=== PATIENT | female | born 1995 | race Caucasian/White ===

== ENCOUNTER → 2017-01-01 | Outpatient (CLI) | payer MEDICAID | LOC: MW.CHFP 14:37 | PROVIDERS: ATTEND Physician Assistant | DX: J02.9 Acute pharyngitis, unspecified (principal) | CPT/HCPCS: 87081; 87880 ==

== ENCOUNTER 2020-12-30 03:33 | Emergency (ER) | payer MEDICAID ==
[2020-12-30 04:47] LABS: ACETAMINOPHEN <2.0 ug/mL; BLOOD UREA NITROGEN,BUN 5 mg/dL (7.0-18.0); CARBON DIOXIDE,CO2 24.4 mmol/L (21.0-32.0); CHLORIDE,CL 106 mmol/L (98-107); GLUCOSE RANDOM 105 mg/dL (74-106); POTASSIUM,K 3.6 mmol/L (3.5-5.1); SODIUM,NA 144 mmol/L (136-145)
--- NOTE | 2020-12-30 05:07 | EDM.PDOC ---
ED HPI GENERAL MEDICAL PROBLEM - General Chief Complaint: Behavioral/Psych Stated Complaint: SUICIDAL THOUGHTS Time Seen by Provider: 12/30/20 03:36 - History of Present Illness INITIAL COMMENTS - FREE TEXT/NARRATIVE: CHIEF COMPLAINT(S): Suicidal attempt HISTORY OF PRESENT ILLNESS: This is a 25-year-old woman with a past medical history of depression on Lexapro who comes to the emergency department with a chief complaint of suicidal attempt. The patient states that for the last few days she has been feeling more depressed. She states that she had her Lexapro changed approximately 2 3 weeks ago and it was doubled. She states that prior to that she said that her Lexapro was not working and she started to feel more depressed, sad, crying and loss of interest in daily life. She states that last night she started to experience suicidal thoughts and decided to try and kill herself by cutting. She states that she did cut her left forearm with a knife.. She states that after she cut her left forearm that she started to drink. She states that she had approximately 4 beers and 3 shots. She denies any daily excessive alcohol use. She denies any illicit substances. She states that she has tried cutting in the past but has never had tried to kill herself. She denies any access to weapons. She denies any ingestions. She states that he recently did start using tobacco. She denies any homicidal ideation, visual hallucination or auditory hallucination. She denies any chest pain, shortness of breath, abdominal pain, nausea or vomiting. She denies any other symptoms at all whatsoever. REVIEW OF SYSTEMS: Constitutional: Denies fever, chills. Eyes: Denies eye pain Ears, Nose, Mouth, & Throat: Denies earache Cardiovascular: Denies chest pain Respiratory: Denies shortness of breath Gastrointestinal: Denies Nausea, vomiting, diarrhea, hematochezia. Genitourinary: Denies hematuria Skin:Denies a rash MSK: Denies joint pain Neurological: Denies blurred vision Psychiatric: Positive for depression, suicidal ideation, suicidal attempt PAST MEDICAL HISTORY: As per history of present illness and as reviewed below otherwise noncontributory. SURGICAL HISTORY: As per history of present illness and as reviewed below otherwise noncontributory. SOCIAL HISTORY: As per history of present illness and as reviewed below otherwise noncontributory. FAMILY HISTORY: As per history of present illness and as reviewed below otherwise noncontributory. EXAMINATION OF ORGAN SYSTEMS/BODY AREAS: Constitutional: Blood pressure was 123/80, heart rate 90, respiratory rate 18 with an oxygen saturation of 96% on room air. Temperature 36.3 General: Young woman who is tearful but in no acute distress Psychiatric: Depressed mood and affect. Intermittently tearful. Eyes: No scleral icterus or conjunctival erythema pupils were 4 mm and reactive bilaterally. Extraocular movements intact. ENMT: Moist mucous membranes. No pharyngeal erythema Cardiovascular: Regular, rate, and rhythm. No gallops, murmurs, or rubs. Bilateral upper extremity pulses symmetric and intact. No peripheral edema. No JVD. Respiratory: Lungs clear to auscultation bilaterally. No wheezes, rales, or rhonchi. Gastrointestinal: Soft, non-tender, non-distended. Normoactive bowel sounds Genitourinary: No suprapubic tenderness Musculoskeletal: Normal range of motion. Skin: There are superficial abrasions on the patient's left forearm. No lacerations. Neurological: Alert, GCS 15 strength and sensation grossly intact MEDICAL DECISION MAKING AND COURSE IN THE ED WITH INTERPRETATION/REVIEW OF DIAGNOSTIC STUDIES: This is a 25-year-old woman with a past medical history of depression who comes to the emergency department with acute suicidal ideation with a attempt by cutting by killing herself. At this time we will place the patient on suicide precautions and obtain screening labs including CBC, CMP, hCG, TSH, urine drug screen, serum drug screen and a Covid swab. EKG was obtained which did not reveal any acute signs of ischemia. I did have a discussion with the patient that I would likely need to transfer her for inpatient psychiatric evaluation given the suicidal attempt and suicidal ideation. She states that this is the reason she came to the emergency department. Laboratory: CBC is unremarkable. CMP reveals hypoalbuminemia at 3.0 otherwise unremarkable. TSH is normal. hCG is negative. Urine drug screen is negative. Serum salicylates are 1.4. Serum Tylenol is negative. Serum alcohol is 167. Covid is negative. Urinalysis was a clean catch and was negative for leukocyte esterase, negative f or nitrites, and negative for blood. Interpretation: Negative. Time: 0407 Twelve-lead EKG interpreted by myself. Normal sinus rhythm at a rate of 84beats per minute. Normal axis. KS interval is 178ms. QRS duration is 106ms. ST segments are normal without elevations or depressions. No T wave inversions no Q waves present. Hypertrophy not noted. No prior EKGs in our system. Interpretation: Normal sinus rhythm After labs and imaging I did discuss with her that I would like to transfer her for inpatient psychiatry. She was amenable to this plan. I contacted [facility] in [place] and they have no available psychiatric beds. We then contacted [facility] in [facility] and they did not have any available beds. Therefore we contacted [facility] and they did have available beds. I talked to Dr. Sosa who stated that they would hold the bed until noon pending paperwork evaluation. We did fax the patient's paperwork. This paperwork includes a 24-hour hold. This is to ensure safe transport for the patient and evaluation by psychiatry. I did discuss with the patient that I was going to fill out this paperwork she was amenable to this plan. [facility] in [place] did receive the paperwork and they accepted the patient for transfer and admission. This is discussed with the patient and family at bedside. They will await transfer. We did contact EMS and at this time there is no available ambulance transfer until 8 AM. [facility] ambulance arrival. DISPOSITION: The patient will be transferred to [facility], the patient signed out to [facility] day team physician pending transfer as the patient could not be transferred until 8 AM when EMS was available CONDITION: Serious PROCEDURES: None FINAL IMPRESSION(S)/DIAGNOSES: 1. Acute suicidal attempt by cutting 2. Acute suicidal ideation 3. Acute alcohol intoxication Jean Claude James M.D. - Related Data Allergies Allergy/AdvReac Type Severity Reaction Status Date / Time No Known Allergies Allergy Verified 12/30/20 03:55 Home Meds: Home Meds Escitalopram Oxalate [Lexapro] 10 mg PO DAILY 12/30/20 [History] Past Medical History HEENT History: Reports: None Cardiovascular History: Reports: None Respiratory History: Reports: None Gastrointestinal History: Reports: None Genitourinary History: Reports: None WATER SYSTEMS ENGINEER History: Reports: None Musculoskeletal History: Reports: None Neurological History: Reports: None Psychiatric History: Reports: Anxiety, Depression, Suicidal Ideation Endocrine/Metabolic History: Reports: None Insulin Pump Model and Preschool Program Director: None Hematologic History: Reports: None Immunologic History: Reports: None Oncologic (Cancer) History: Reports: None Dermatologic History: Reports: None - Infectious Disease History Infectious Disease History: Reports: None - Past Surgical History Head Surgeries/Procedures: Reports: None HEENT Surgical History: Reports: Oral Surgery Social & Family History - Caffeine Use Caffeine Use: Reports: Energy Drinks - Recreational Drug Use Recreational Drug Use: No ED ROS GENERAL - Review of Systems Review Of Systems: See Below ED EXAM, RENAL/ - Physical Exam Exam: See Below Course - Vital Signs Last Recorded V/S: Last Vital Signs Temp 36.3 C 12/30/20 04:58 Pulse 69 12/30/20 04:58 Resp 18 12/30/20 04:58 BP 119/73 12/30/20 04:58 Pulse Ox 98 12/30/20 04:58 - Orders/Labs/Meds Orders: Active Orders 24 hr Category Date Time Status EKG Documentation Completion [RC] STAT Care 12/30/20 03:48 Active Labs: Laboratory Tests 12/30/20 12/30/20 12/30/20 Range/Units 03:40 03:50 04:04 WBC 7.37 (4.0-11.0) K/uL RBC 4.57 (4.30-5.90) M/uL Hgb 12.8 (12.0-16.0) g/dL Hct 39.0 (36.0-46.0) % MCV 85.3 (80.0-98.0) fL MCH 28.0 (27.0-32.0) pg MCHC 32.8 (31.0-37.0) g/dL RDW Std Deviation 39.7 (28.0-62.0) fl RDW Coeff of Zina 13 (11.0-15.0) % Plt Count 306 (150-400) K/uL MPV 9.90 (7.40-12.00) fL Neut % (Auto) 61.8 (48.0-80.0) % Lymph % (Auto) 32.3 (16.0-40.0) % [place] % (Auto) 5.3 (0.0-15.0) % Eos % (Auto) 0.3 (0.0-7.0) % Baso % (Auto) 0.3 (0.0-1.5) % Neut # (Auto) 4.6 (1.4-5.7) K/uL Lymph # (Auto) 2.4 (0.6-2.4) K/uL [place] # (Auto) 0.4 (0.0-0.8) K/uL Eos # (Auto) 0.0 (0.0-0.7) K/uL Baso # (Auto) 0.0 (0.0-0.1) K/uL Nucleated RBC % 0.0 /100WBC Nucleated RBCs # 0 K/uL Sodium (136-145) mmol/L Potassium (3.5-5.1) mmol/L Chloride (98-107) mmol/L Carbon Dioxide (21.0-32.0) mmol/L BUN (7.0-18.0) mg/dL Creatinine (0.6-1.0) mg/dL Est Cr Clr Drug Dosing mL/min Estimated GFR (MDRD) ml/min Glucose (74-106) mg/dL Calcium (8.5-10.1) mg/dL Total Bilirubin (0.2-1.0) mg/dL AST (15-37) IU/L ALT (14-63) IU/L Alkaline Phosphatase (46-116) U/L Total Protein (6.4-8.2) g/dL Albumin (3.4-5.0) g/dL Globulin (2.6-4.0) g/dL Albumin/Globulin Ratio (0.9-1.6) TSH 3rd Generation (0.36-3.74) uIU/mL HCG, Qual (NEG) Urine Color YELLOW Urine Appearance CLEAR Urine pH 6.5 (5.0-8.0) Ur Specific [place] <= 1.005 (1.001-1.035) Urine Protein NEGATIVE (NEGATIVE) mg/dL Urine Glucose (UA) NEGATIVE (NEGATIVE) mg/dL Urine Ketones NEGATIVE (NEGATIVE) mg/dL Urine Occult Blood NEGATIVE (NEGATIVE) Urine Nitrite NEGATIVE (NEGATIVE) Urine Bilirubin NEGATIVE (NEGATIVE) Urine Urobilinogen 0.2 (<2.0) EU/dL Ur Leukocyte Esterase NEGATIVE (NEGATIVE) Salicylates (0-20) mg/dL Urine Opiates Screen NEGATIVE (NEGATIVE) Ur Oxycodone Screen NEGATIVE (NEGATIVE) Urine Methadone Screen NEGATIVE (NEGATIVE) Acetaminophen ug/mL Ur Barbiturates Screen NEGATIVE (NEGATIVE) Ur Phencyclidine Scrn NEGATIVE (NEGATIVE) Ur Amphetamine Screen NEGATIVE (NEGATIVE) U Methamphetamines Scrn NEGATIVE (NEGATIVE) U Benzodiazepines Scrn NEGATIVE (NEGATIVE) U Cocaine Metab Screen NEGATIVE (NEGATIVE) U Marijuana (THC) Screen NEGATIVE (NEGATIVE) Ethyl Alcohol mg/dL SARS-CoV-2 RNA (DESTINY) (NEGATIVE) 12/30/20 12/30/20 12/30/20 Range/Units 04:04 04:04 04:15 WBC (4.0-11.0) K/uL RBC (4.30-5.90) M/uL Hgb (12.0-16.0) g/dL Hct (36.0-46.0) % MCV (80.0-98.0) fL MCH (27.0-32.0) pg MCHC (31.0-37.0) g/dL RDW Std Deviation (28.0-62.0) fl RDW Coeff of Zina (11.0-15.0) % Plt Count (150-400) K/uL MPV (7.40-12.00) fL Neut % (Auto) (48.0-80.0) % Lymph % (Auto) (16.0-40.0) % [place] % (Auto) (0.0-15.0) % Eos % (Auto) (0.0-7.0) % Baso % (Auto) (0.0-1.5) % Neut # (Auto) (1.4-5.7) K/uL Lymph # (Auto) (0.6-2.4) K/uL [place] # (Auto) (0.0-0.8) K/uL Eos # (Auto) (0.0-0.7) K/uL Baso # (Auto) (0.0-0.1) K/uL Nucleated RBC % /100WBC Nucleated RBCs # K/uL Sodium 144 (136-145) mmol/L Potassium 3.6 (3.5-5.1) mmol/L Chloride 106 (98-107) mmol/L Carbon Dioxide 24.4 (21.0-32.0) mmol/L BUN 5 L (7.0-18.0) mg/dL Creatinine 0.8 (0.6-1.0) mg/dL Est Cr Clr Drug Dosing 111.37 mL/min Estimated GFR (MDRD) > 60.0 ml/min Glucose 105 (74-106) mg/dL Calcium 8.4 L (8.5-10.1) mg/dL Total Bilirubin 0.2 (0.2-1.0) mg/dL AST 11 L (15-37) IU/L ALT 15 (14-63) IU/L Alkaline Phosphatase 74 (46-116) U/L Total Protein 7.4 (6.4-8.2) g/dL Albumin 3.0 L (3.4-5.0) g/dL Globulin 4.4 H (2.6-4.0) g/dL Albumin/Globulin Ratio 0.7 L (0.9-1.6) TSH 3rd Generation 2.59 (0.36-3.74) uIU/mL HCG, Qual NEGATIVE (NEG) Urine Color Urine Appearance Urine pH (5.0-8.0) Ur Specific [place] (1.001-1.035) Urine Protein (NEGATIVE) mg/dL Urine Glucose (UA) (NEGATIVE) mg/dL Urine Ketones (NEGATIVE) mg/dL Urine Occult Blood (NEGATIVE) Urine Nitrite (NEGATIVE) Urine Bilirubin (NEGATIVE) Urine Urobilinogen (<2.0) EU/dL Ur Leukocyte Esterase (NEGATIVE) Salicylates 1.4 (0-20) mg/dL Urine Opiates Screen (NEGATIVE) Ur Oxycodone Screen (NEGATIVE) Urine Methadone Screen (NEGATIVE) Acetaminophen <2.0 ug/mL Ur Barbiturates Screen (NEGATIVE) Ur Phencyclidine Scrn (NEGATIVE) Ur Amphetamine Screen (NEGATIVE) U Methamphetamines Scrn (NEGATIVE) U Benzodiazepines Scrn (NEGATIVE) U Cocaine Metab Screen (NEGATIVE) U Marijuana (THC) Screen (NEGATIVE) Ethyl Alcohol 165 mg/dL SARS-CoV-2 RNA (DESTINY) NEGATIVE (NEGATIVE) Departure - Departure Time of Disposition: 06:09 Disposition: DC/Tfer to Psych Hosp/Unit 65 Condition: Serious Clinical Impression: Self-harm, Suicide attempt, Suicidal ideation - Discharge Information *PRESCRIPTION DRUG MONITORING PROGRAM REVIEWED*: No *COPY OF PRESCRIPTION DRUG MONITORING REPORT IN PATIENT VICENTA: No Referrals: Erin Ortega MD [Primary Care Provider] - Forms: ED Department Discharge Sepsis Event Note (ED) - Evaluation Sepsis Screening Result: No Definite Risk - Focused Exam Vital Signs: Vital Signs Temp Pulse Resp BP Pulse Ox 12/30/20 04:58 36.3 C 69 18 119/73 98 12/30/20 03:45 36.3 C 90 18 123/80 96 - My Orders Last 24 Hours: My Active Orders 12/30/20 03:48 EKG Documentation Completion [RC] STAT - Assessment/Plan Last 24 Hours: My Active Orders 12/30/20 03:48 EKG Documentation Completion [RC] STAT
[2020-12-30 08:41] VITALS: BP 111/47; PULSE 95
[2020-12-30] MEDS ORDERED: Ibuprofen 400 MG Tab PO ONE (09:17)
== END 2020-12-30 09:29 ==
LOC: MW.ED 03:33
DX: S50.812A Abrasion of left forearm, initial encounter (principal); F10.129 Alcohol abuse with intoxication, unspecified; Y90.6 Blood alcohol level of 120-199 mg/100 ml; Z20.822 Contact with and (suspected) exposure to COVID-19; Z79.899 Other long term (current) drug therapy; X78.1XXA Intentional self-harm by knife, initial encounter
CPT/HCPCS: 36415; 80053; 80143; 80179; 80305; 80307; 81003; 84443; 84703; 85025; 87635; 93005; 99285; A9270; U0002

== ENCOUNTER 2022-06-19 14:55 | Inpatient (IN) | payer BC, MEDICAID ==
[2022-06-19] MEDS ORDERED: Lidocaine 1% 50 ML MDV INJECT PRN (16:00)
[2022-06-19] MEDS ORDERED: Water For Irrigation,Sterile 1,000 ML Container IRR PRN (16:00)
[2022-06-19] MEDS ORDERED: Oxytocin/0.9 % Sodium Chloride 30 UNIT/500 ML BAG IV SCH (16:00)
[2022-06-19] MEDS ORDERED: Lactated Ringers 1,000 ML IV SCH (16:00)
[2022-06-19] MEDS ORDERED: Misoprostol 200 MCG Tab PO PRN (16:00)
[2022-06-19] MEDS ORDERED: Carboprost Tromethamine 250 MCG/1 ML Amp IM PRN (16:00)
[2022-06-19] MEDS ORDERED: Methylergonovine 0.2 MG/1 ML Amp IM PRN (16:00)
[2022-06-19] MEDS ORDERED: Tranexamic Acid 1,000 MG in Sodium Chloride 0.9% 100 ML IV PRN (16:00)
[2022-06-19] MEDS ORDERED: Oxytocin/0.9 % Sodium Chloride 30 UNIT/500 ML BAG ONE (17:09)
[2022-06-19] MEDS ORDERED: Phenylephrine HCl In 0.9% NaCl 1 MG/10 ML Vial ONE (17:27)
[2022-06-19] MEDS ORDERED: Lidocaine 2% with EPINEPHrine 1:200,000 20 ML SDV ONE (17:27)
[2022-06-19] MEDS ORDERED: Ropivacaine/PF 400 MG/200 ML PCA ONE (17:27)
[2022-06-19] MEDS ORDERED: Benzocaine/Menthol 20%-0.5% Spray 78 GM Cannister TOP PRN (18:48)
[2022-06-19] MEDS ORDERED: Ibuprofen 800 MG Tab PO PRN (18:48)
[2022-06-19] MEDS ORDERED: Ibuprofen 400 MG Tab PO PRN (18:48)
[2022-06-19] MEDS ORDERED: Sodium Chloride 0.9% 20 ML SDV IV PRN ×2 (18:48→20:35)
[2022-06-19] MEDS ORDERED: Docusate Sodium 100 MG Cap PO PRN (18:48)
[2022-06-19] MEDS ORDERED: Bisacodyl 10 MG Supp RECTAL PRN (18:48)
[2022-06-19] MEDS ORDERED: Lanolin 100% Cream 7 GM Tube TOP PRN (18:48)
[2022-06-19] MEDS ORDERED: Acetaminophen 500 MG Tab PO PRN (18:48)
[2022-06-19] MEDS ORDERED: Sodium Chloride 0.9% 10 ML Syringe FLUSH PRN ×2 (18:48→20:35)
[2022-06-19] MEDS ORDERED: oxyCODONE 5 MG Tab PO PRN (18:48)
[2022-06-19] MEDS ORDERED: Sodium Chloride 0.9% 2.5 ML Syringe FLUSH PRN ×2 (18:48→20:35)
[2022-06-19] MEDS ORDERED: Witch Hazel Medicated Pads 40/Jar TOP PRN (18:48)
[2022-06-19] MEDS ORDERED: Butorphanol 1 MG/ML SDV IVPUSH PRN (20:35)
[2022-06-20] MEDS ORDERED: ePHEDrine 50 MG/ML SDV IVPUSH PRN ×2 (07:51)
[2022-06-20] MEDS ORDERED: Ropivacaine HCl/PF 400 MG in Premix Bag 1 BAG EPIDUR SCH (08:00)
[2022-06-20] MEDS ORDERED: Phenylephrine HCl In 0.9% NaCl 1 MG/10 ML Vial IVPUSH SCH (08:00)
[2022-06-20] MEDS: Acetaminophen 500 MG Tab PO PRN ×2 (08:33→15:28)
[2022-06-20 20:58] VITALS: BP 136/67; PULSE 67
[2022-06-20] MEDS ORDERED: Calcium Carbonate 500 MG Tab.Chew PO PRN (20:58)
[2022-06-20] MEDS ORDERED: HYDROmorphone 2 MG/ML Syringe IVPUSH PRN (21:07)
== END 2022-06-20 23:58 | disposition home or self-care (01) | DRG 560 ==
LOC: MW.OBCHECK 14:55 → MW.OB 14:59 → MW.OBCHECK 15:00 → MW.OB 15:01 → OBSVTOIN 18:28 → MW.OB 21:57
PROVIDERS: ADMIT Obstetrics & Gynecology; ATTEND Obstetrics & Gynecology
PROC: 10E0XZZ Delivery of Products of Conception, External Approach (ICD-10-PCS; principal; 2022-06-19)
PROC: 10907ZC Drainage of Amniotic Fluid, Therapeutic from Products of Conception, Via Natural or Artificial Opening (ICD-10-PCS; 2022-06-19)
PROC: 3E0R3BZ Introduction of Anesthetic Agent into Spinal Canal, Percutaneous Approach (ICD-10-PCS; 2022-06-19)
PROC: 00HU33Z Insertion of Infusion Device into Spinal Canal, Percutaneous Approach (ICD-10-PCS; 2022-06-19)
DX: O99.214 Obesity complicating childbirth (principal); Z37.0 Single live birth; O69.81X0 Labor and delivery complicated by cord around neck, without compression, not applicable or unspecified; Z20.822 Contact with and (suspected) exposure to COVID-19; Z3A.39 39 weeks gestation of pregnancy
CPT/HCPCS: 01967; 36415; 51702; 59025; 59409; 82803; 85014; 85018; 85025; 86592; 86850; 86900; 86901; A9270-GY; J2590; J2795; J7120; U0002